=== PATIENT | female | born 1945 | race Caucasian/White ===

== ENCOUNTER 2020-07-13 21:51 | Emergency (ER) | payer OTHER ==
[2020-07-13 22:25] VITALS: BP 135/67; PULSE 54; TEMP 97.9; BMI 19.1
== END 2020-07-13 22:37 | disposition home or self-care (01) ==
LOC: FER 21:51 → SUPCPDRO 21:51 → FER 22:37
DX: K64.9 Unspecified hemorrhoids (principal)
CPT/HCPCS: 99283-25

== ENCOUNTER 2023-06-08 14:21 | Emergency (ER) | payer OTHER ==
[2023-06-08] MEDS ORDERED: DIPHTH,PERTUSS(ACELL),TET 0.5 ML DISP.SYRIN IM ONE ×2 (14:30→14:51)
[2023-06-08 14:39] VITALS: BP 147/95; PULSE 97; RESP 18; TEMP 98.7; BMI 19.3
== END 2023-06-08 15:17 | disposition home or self-care (01) ==
LOC: FER 14:21
PROC: 0HQFXZZ Repair Right Hand Skin, External Approach (ICD-10-PCS; principal; 2023-06-08)
PROC: 3E0234Z Introduction of Serum, Toxoid and Vaccine into Muscle, Percutaneous Approach (ICD-10-PCS; 2023-06-08)
DX: S61.214A Laceration without foreign body of right ring finger without damage to nail, initial encounter (principal); W26.0XXA Contact with knife, initial encounter; Y93.G9 Activity, other involving cooking and grilling; Y92.000 Kitchen of unspecified non-institutional (private) residence as the place of occurrence of the external cause
CPT/HCPCS: 90715; 99282-25